=== PATIENT | female | born 1980 | race African-American/Black ===

== ENCOUNTER 2018-06-24 05:27 | Day surgery (SDC) | payer SELFPAY ==
[2018-06-23 09:32] VITALS: BMI 26.5
[2018-06-24] MEDS ORDERED: MIDAZOLAM HCL 2 MG/2 ML SINGLE DOSE VIAL ONE (11:34)
[2018-06-24] MEDS ORDERED: IBUPROFEN 800 MG/8 ML IJ IVPB PRN (11:39)
--- NOTE | 2018-06-24 11:39 | HP ---
History & Physical Update - History History: No Change - Physical Physical: No Change - Assessment Assessment: No Change - Plan Plan: No Change (Agree with H&P from 06/02/18 - for hysteroscopic resection of endometrial polyps)
[2018-06-24] MEDS ORDERED: LACTATED RINGERS SOLUTION 1,000 ML IV SCH ×2 (11:45→12:45)
[2018-06-24] MEDS ORDERED: KETOROLAC TROMETHAMINE 30 MG/1 ML VIAL ONE (12:15)
--- NOTE | 2018-06-24 12:25 | OP ---
Operative Note - Note: Operative Date: 06/24/18 (dictation [id number]) Pre-Operative Diagnosis: endometrial polyps Operation: hysteroscopic resection of uterine polyps, suction D&C Findings: endometrial polyps b/l tubal ostea noted Post-Operative Diagnosis: Same as Pre-op Surgeon: Nella Cantu Anesthesiologist/[employer] OFFICE MANAGER: Charline Choi Anesthesia: General (with LMA) Specimens Removed: endometrial polyps Estimated Blood Loss (mls): 5 Operative Report Dictated: Yes
[2018-06-24] MEDS ORDERED: ONDANSETRON 4 MG/2 ML VIAL IVPUSH PRN (12:32)
[2018-06-24] MEDS ORDERED: oxyCODONE HCL 5 MG TABLET PO PRN (12:32)
[2018-06-24 14:50] VITALS: BP 125/85
[2018-06-24 15:49] VITALS: PULSE 69; TEMP 98
--- NOTE | 2018-06-25 07:24 | OP ---
DATE OF OPERATION: 06/24/2018 PREOPERATIVE DIAGNOSIS: Endometrial polyps. POSTOPERATIVE DIAGNOSIS: Endometrial polyps. PROCEDURE: Hysteroscopic resection of endometrial polyps, suction dilatation and curettage. SURGEON: Nella Cantu MD ANESTHESIA: LMA. ANESTHESIOLOGIST: Charline Choi MD COMPLICATIONS: None. ESTIMATED BLOOD LOSS: 5 mL. SPECIMENS REMOVED: Endometrial polyps. COUNTS: Sponge and instrument counts correct. DISPOSITION: Stable to PACU. BRIEF HISTORY AND PROCEDURE: Patient is a 37-year-old female who had been seen in the office with complaints of abnormal bleeding, and upon ultrasound examination , was found to have an endometrial polyp. The patient was counseled on her options and she elected to undergo hysteroscopic resection of the polyp. Patient signed the consents for the procedure in the office, and the consents were reconfirmed upon admission on June 24, 2018. The patient was then taken back to the operating room and given general anesthesia with LMA by Dr. Choi and placed in the dorsal lithotomy position. She was prepped and draped in the usual sterile fashion, and a hard time-out was performed. A speculum was placed inside the vagina. The anterior lip of the cervix was easily visualized and grasped with a tenaculum, and the cervix was dilated to accommodate an operative hysteroscope, which was advanced to the fundus of the uterus. Bilateral tubal ostia were noted. One dominant large uterine polyp was noted and one small uterine polyp was appreciated, both on the left side posterior wall of the uterus. These were resected with the resectoscope device at this time. Polyp forceps was used to remove these polyps. The camera was placed back into the uterus. One other small polyp in the right lower posterior wall of the uterus was appreciated, which was resected with the resectoscope in the usual fashion. Next, sharp dilatation and curettage was performed, and a suction dilatation and curettage was completed to remove all endometrial curettings and tissue. One final look with the scope revealed no evidence of uterine perforation. All polyps were then removed, and the endometrial cavity appeared clear. All instruments were removed from the vagina. Sponge and instrument counts were reported to be correct. Tenaculum sites were noted to be hemostatic. Minimal bleeding was noted from the cervical os. She was awoken from anesthesia and recovered in stable condition in the PACU after the procedure. Fluid deficit was 270 mL of normal saline. NELLA CANTU DO /[id number] MTDD
--- NOTE | 2018-06-25 16:47 | PATH ---
Surgical Pathology Report Patient Name: BRENNA SCHULTE [facility]. Rec. #: [id number] /Age/Gender: 1980 (Age: 37) / F Account: [id number] Location: [facility] SURGICAL Taken: 06/24/2018 Received: 06/24/2018 Reported: 06/25/2018 Physicians: Nella Cantu M.D. Specimen(s) Received ENDOMETRIAL POLYPS AND CURETTINGS Clinical History Endometrial polyps Final Diagnosis ENDOMETRIAL POLYPS AND CURETTINGS, SUCTION DILATION AND CURETTAGE: ENDOMETRIAL POLYP, PROLIFERATIVE ENDOMETRIUM AND ENDOCERVICAL TISSUE. Electronically Signed Luz Suarez M.D. Gross Description Received in formalin labeled "endometrial polyps and curettings" are multiple fragments of hemorrhagic pink-krause tissue measuring 5 x 2 x 1.5 cm in aggregate. 2 large polyps are identified measuring 2.5 and 1.5 in greatest dimension. The entire specimen submitted in 2 cassettes as follows: 1- largest polyp, bisected, 2- smaller polyp and remainder of specimen. MLKleverZ/06/24/2018 sanjo/06/24/2018
== END 2018-06-24 15:05 | disposition home or self-care (01) ==
LOC: JASU-SURG 05:27
PROVIDERS: ATTEND Obstetrics & Gynecology
PROC: 0UB98ZX Excision of Uterus, Via Natural or Artificial Opening Endoscopic, Diagnostic (ICD-10-PCS; principal; 2018-06-24 11:30)
PROC: 0UDB8ZX Extraction of Endometrium, Via Natural or Artificial Opening Endoscopic, Diagnostic (ICD-10-PCS; 2018-06-24 11:30)
DX: N84.0 Polyp of corpus uteri (principal)
CPT/HCPCS: 36415; 84703; 86850; 86900; 86901; 88305-TC; 94760